=== PATIENT | male | born 1960 | race Caucasian/White ===

== ENCOUNTER 2025-04-05 08:54 | Day surgery (SDC) | payer MEDICARE, BC ==
[2025-04-05] MEDS ORDERED: Propofol 200 MG/20 ML SDV ONE ×2 (08:55)
[2025-04-05] MEDS ORDERED: Ketamine 200 MG/20 ML MDV ONE (08:55)
[2025-04-05] MEDS ORDERED: Midazolam 1 MG/ML 2 ML SDV ONE (08:55)
[2025-04-05] MEDS ORDERED: fentaNYL 50 MCG/ML SDV ONE (08:55)
[2025-04-05] MEDS: Lactated Ringers 1,000 ML IV SCH (10:47)
[2025-04-05 11:22] VITALS: BP 141/83; PULSE 65
== END 2025-04-05 11:20 | disposition home or self-care (01) ==
LOC: CC.SDS 08:54
PROVIDERS: ATTEND Family Medicine
DX: Z12.11 Encounter for screening for malignant neoplasm of colon (principal); D12.3 Benign neoplasm of transverse colon; D12.5 Benign neoplasm of sigmoid colon; K57.30 Diverticulosis of large intestine without perforation or abscess without bleeding; I10 Essential (primary) hypertension; E78.5 Hyperlipidemia, unspecified; Z88.2 Allergy status to sulfonamides; Z87.891 Personal history of nicotine dependence; Z79.899 Other long term (current) drug therapy
CPT/HCPCS: 00811; 88305; J2250; J2704; J3010; J3490; J7120